=== PATIENT | female | born 1990 | race Caucasian/White ===

== ENCOUNTER → 2017-10-08 | Outpatient (CLI) | payer BC, MEDICAID ==
[~2017-10-08] MED LIST: DIPH0.5D12 IM; PREN-127 PO; RHO(150015 IM
[2017-10-08 15:13] LABS: PLATELET COUNT, AUTOMATED 174 K/uL (150-450)
== END ==
LOC: LAB 14:11
PROVIDERS: ATTEND Obstetrics & Gynecology
DX: Z34.90 Encounter for supervision of normal pregnancy, unspecified, unspecified trimester (principal); R10.11 Right upper quadrant pain
CPT/HCPCS: 36415; 82040; 82247; 82310; 82374; 82435; 82565; 82947; 82950; 84075; 84132; 84155; 84295; 84450; 84460; 84520; 85025

== ENCOUNTER → 2017-12-03 | Outpatient (CLI) | payer BC, MEDICAID | LOC: LAB 15:37 | PROVIDERS: ATTEND Obstetrics & Gynecology | DX: Z34.90 Encounter for supervision of normal pregnancy, unspecified, unspecified trimester (principal) | CPT/HCPCS: 87081 ==

== ENCOUNTER 2017-12-27 15:57 | Inpatient (IN) | payer MEDICAID ==
[~2017-12-27] VITALS: Ht 170.2 cm; Wt 71.2 kg
[2017-12-31 08:17] VITALS: BP 129/68; Ht 170.2 cm; Wt 71.2 kg
--- NOTE | 2017-12-31 10:00 | History & Physical ---
History of Present Illness EDC per U/S: Dec 29, 2017 Estimated Gestational Age: 40.2 Chief Complaint Labor History of Present Illness 27yo at 40w2d presents in spontaneous labor. She reports contractions started at 1600hrs yesterday. She denies any vaginal bleeding. She reports movement. No preeclampsia symptoms. record reviewed. care by IM[facility]. complicated by Rh negative and vaginal cyst. History Patient's Blood Type: A Negative Rubella Status: Immune Group B Strep Screen: Negative Obstetrical History: Primip Past Medical History: PMH: None PSH: Tonsillectomy Allergies: Coded Allergies: Penicillins (Unverified Allergy, Mild, HIVES, 09/17/17) latex (Unverified Allergy, Mild, HIVES, 09/17/17) Social History: No T/E/D. . Family History: Patient reports no known family medical history. Med Rec Home Meds Reported Medications Vits W-Ca,Fe,Fa(<1MG) ( VITAMINS) 1 Each Tablet, 1 EACH PO DAILY, TAB 09/17/17 Review of Systems Constitutional: No Fever Neurological: No Syncope Eyes: No Vision Change Cardiovascular: No Chest Pain Respiratory: No Shortness of Breath, No Cough Gastrointestinal: No Nausea, No Vomiting, No Diarrhea Genitourinary: No Dysuria Musculoskeletal: No Pain Psychiatric: No Depression, No Anxiety Exam General Exam Vital Signs Vital Signs Date Time Temp Pulse Resp B/P (MAP) Pulse Ox O2 Delivery O2 Flow Rate FiO2 12/31/17 08:17 98.0 74 16 129/68 (88) 96 Room Air General Apperance: Alert/Awake/No Acute Distress Neuro: No Gross deficits Eyes: Normal Extraocular Movement & Vison Cardiovascular: Regular Rate and Rhythm Respiratory: No Respiratory Distress, Clear to Auscultation Abdomen: Gravid - Non-Tender : Normal Musculoskeletal: No Weakness/Pain Extremities: No Cyanosis,Clubbing or Edema Integumentary: Skin Intact without Lesions or Rash Psychological: Alert & Oriented X3, Appropriate Mood & Affect Cervical Dialation: 4 Cervical Effacement (%): 80 Cervical Consistency: Soft Cervical Position: Mid Station: -1 Presentation: Vertex Uterine Contractions(Q min): 4 Uterine Contraction Strength: Moderate UC Resting Tone: Soft Fetus Feeling Movement?: Yes FHT Category: I Assessment and Plan Problems: (1) Spontaneous onset of labor Assessment & Plan: 27yo at 40w2d presents in spontaneous labor. GBS negative. Anticipate . (2) Rh negative status during Assessment & Plan: Rhophylac eval . (3) 40 weeks gestation of Problem Qualifiers (1) Rh negative status during : Trimester: third trimester Qualified Codes: O09.893 - Supervision of other high risk pregnancies, third trimester; Z67.91 - Unspecified blood type, rh negative LINDA WEBB MD Dec 31, 2017 10:00
[2017-12-31] MEDS ORDERED: FAMOTIDINE(*) 20MG/50ML PREMIX 50 ML IVPB PRN (10:02)
[2017-12-31] MEDS ORDERED: OXYTOCIN 30 UNIT/D5LR 500 ML 500 ML IV PRN (10:02)
[2017-12-31] MEDS ORDERED: FENTANYL/ROPIVACAINE 100 ML BAG EPI PRN (10:05)
[2017-12-31] MEDS ORDERED: LIDOCAINE/PF 2% 200MG/10ML AMP 200 MG/10 ML AMPUL EPI PRN (10:05)
[2017-12-31] MEDS ORDERED: METOCLOPRAMIDE 10 MG/2 ML SDV IVP PRN (10:05)
[2017-12-31] MEDS ORDERED: BUPIVACAINE 0.25% MPF INJ EPI PRN (10:05)
[2017-12-31] MEDS ORDERED: LIDOCAINE 1% LOCAL 300 MG/30ML INJ PRN (10:05)
[2017-12-31] MEDS ORDERED: BUPIVACAINE 0.5% INJ 30ML VIAL EPI PRN (10:05)
[2017-12-31] MEDS ORDERED: LIDO/EPI 2% MPF 1:200,000 20ML EPI PRN (10:05)
[2017-12-31] MEDS ORDERED: fentaNYL CITR 100 MCG/2 ML AMP IT PRN (10:05)
[2017-12-31] MEDS ORDERED: fentaNYL CITR 100 MCG/2 ML AMP IVP PRN (10:05)
[2017-12-31] MEDS ORDERED: LIDOCAINE/SOD BICARB 8.4% SYR SC PRN (10:05)
[2017-12-31] MEDS ORDERED: FLUSH 10 ML SYR IVP PRN (10:05)
[2017-12-31] MEDS ORDERED: EPIDURAL KEYS XX PRN (10:06)
[2017-12-31 10:25] LABS: PLATELET COUNT, AUTOMATED 135 K/uL (150-450)
--- NOTE | 2017-12-31 12:22 | Labor Progress Note ---
Labor Subjective Progress Notes Subjective Pt feeling well, contractions are still painful. Labor Objective Vital Signs Vital Signs Date Time Temp Pulse Resp B/P (MAP) Pulse Ox O2 Delivery O2 Flow Rate FiO2 12/31/17 08:17 98.0 74 16 129/68 (88) 96 Room Air Vaginal Discharge/Fluid?: Clear Fluid Cervical Dialation: 4 Cervical Effacement (%): 80 Cervical Consistency: Soft Cervical Position: Mid Station: 0 Presentation: Vertex Uterine Contractions(Q min): 4 Uterine Contraction Strength: Moderate UC Resting Tone: Soft Fetus FHT Category: I General Exam General Appearance: Alert/Awake/No Acute Distress Abdomen: Gravid - Non-Tender : Normal Extremities: No Cyanosis,Clubbing or Edema Integumentary: Skin Intact without Lesions or Rash Psychological: Alert & Oriented X3, Appropriate Mood & Affect Other Result Diagram: 12/31/17 1017 Assessment and Plan Problems: (1) Spontaneous onset of labor Assessment & Plan: AROM for augmentation. Clear fluid. Monitor for cervical change. (2) Rh negative status during Assessment & Plan: Rhophylac eval . (3) 40 weeks gestation of Problem Qualifiers (1) Rh negative status during : Trimester: third trimester Qualified Codes: O09.893 - Supervision of other high risk pregnancies, third trimester; Z67.91 - Unspecified blood type, rh negative LINDA WEBB MD Dec 31, 2017 12:22
[2017-12-31] MEDS: LR(*) 1000 ML BAG 1,000 ML IV SCH ×2 (15:03→19:42)
--- NOTE | 2017-12-31 17:42 | Anesthesia OB Pre-Anes Eval ---
History of Present Illness Anesthesia Start Date: Dec 31, 2017 Anesthesia Start Time: 16:37 EDC: Dec 29, 2017 : 1 Para: 0 Vital Signs: Vital Signs Date Time Temp Pulse Resp B/P (MAP) Pulse Ox O2 Delivery O2 Flow Rate FiO2 12/31/17 08:17 98.0 74 16 129/68 (88) 96 Room Air Pain Ratin Result Diagram: 12/31/17 1017 Height (Inches): 67.00 Weight (Pounds): 157 BMI Calculated: 24.59 Past Medical History Medical History: no pertinent history Surgical History: noncontributory Hx Anesthesia Reactions: No Hx Family Anesthesia Reaction: No Home Meds Reported Medications Vits W-Ca,Fe,Fa(<1MG) ( VITAMINS) 1 Each Tablet, 1 EACH PO DAILY, TAB 09/17/17 Allergies: Coded Allergies: Penicillins (Unverified Allergy, Mild, HIVES, 09/17/17) latex (Unverified Allergy, Mild, HIVES, 09/17/17) Anesthesia OB ROS Neurological: No migraines/headaches, No seizures, No neuropathy, No other ENT: Denies Tooth caps, Denies Loose teeth, Denies Chipped teeth, Denies Dentures, Denies Bridges, Denies Retainers, Denies Veneers, Denies Implants, Denies Tongue ring, Denies Other Pulmonary: No asthma, No smoker (pks/day/yrs), No other Airway Class: ll Cardiovascular ROS: No edema, No arrhythmia, No other ROS: No Herpes, No STD(s), No Liver Disease, No Renal Disease, No Other Endocrine ROS: No diabetes, No gestational diabetes, No thyroid disorder, No other Musculoskeletal ROS: No low back pain, No low back injury, No scoliosis, No other ASA Classification: 2 Assessment and Plan Anesthesia Plan: MEDARDO CHRISTIANSON CRNA Dec 31, 2017 17:42
--- NOTE | 2017-12-31 17:44 | Procedure Note ---
Anesthetic Placement Note Anesthesia Plan: LEB Permit for Anesthesia Signed: Yes Anesthesia Technique: Patient Sitting Anesthesia Prep: Chlorhexidine Interspace: L 4-5 Local Anesthetic: 1% Lidocaine, 25 Gauge Needle Amount Local - cc's: 2 Anesthesia Needle: 17g Touhy/Schliff Anesthesia Attempts: 1 Loss of Resistance: Normal Saline Depth of CELESTINO (cm): 4 Epidural Needle Placement: No CSF, No Blood, No Parasthesia Catheter Insertion (cm): 5 Catheter Type: Jones - Spring Wound Epidural Dressing: Tegaderm, Tape Anesthesia Tray: Lot Number ([id number]), Expiration Date (01/05/2019), Reference Number ([id number]) Anesthesia Medications: Epidural Test Dose: 1.5 Lido/Epi (1:200,000), Dose - mL (5 mL incrementally), Time (164), Negative Epidural Loading Dose: 0.2% Ropivicaine, With Fentanyl 2mcg/ml, Dose - ml (5), Time (1659) Epidural Infusion: 0.2% Ropivicaine, With Fentanyl 2mcg/ml, Start Time: (1659) Epidural Pump Setting: Bolus Dose - mL (5), Lockout - Minutes (15), Maintenance Rate - mL/hr (9), Maximum per Hour - mL (24) Complications: None MEDARDO PIERRE CRNA Dec 31, 2017 17:44
--- NOTE | 2017-12-31 18:01 | Labor Progress Note ---
Labor Subjective Progress Notes Subjective Now comfortable with epidural. No preeclampsia symptoms. Labor Objective Vital Signs Vital Signs Date Time Temp Pulse Resp B/P (MAP) Pulse Ox O2 Delivery O2 Flow Rate FiO2 12/31/17 08:17 98.0 74 16 129/68 (88) 96 Room Air Vaginal Discharge/Fluid?: Clear Fluid Cervical Dialation: 7 Cervical Effacement (%): 100 Cervical Consistency: Soft Cervical Position: Mid Station: +1 Presentation: Vertex Uterine Contractions(Q min): 3 Uterine Contraction Strength: Strong UC Resting Tone: Soft Fetus FHT Category: I General Exam General Appearance: Alert/Awake/No Acute Distress Respiratory: No Respiratory Distress Psychological: Alert & Oriented X3, Appropriate Mood & Affect Other Result Diagram: 12/31/17 1017 Assessment and Plan Problems: (1) Spontaneous onset of labor Assessment & Plan: Pt is now 7cm and comfortable with epidural. Continue with pitocin. Anticipate . (2) Rh negative status during Assessment & Plan: Rhophylac eval . (3) 40 weeks gestation of Problem Qualifiers (1) Rh negative status during : Trimester: third trimester Qualified Codes: O09.893 - Supervision of other high risk pregnancies, third trimester; Z67.91 - Unspecified blood type, rh negative LINDA WEBB MD Dec 31, 2017 18:01
--- NOTE | 2017-12-31 19:59 | Anesthesia Progress Note ---
Progress/Maintenance Anesthesia Note Date: Dec 31, 2017 Anesthesia Note Time: 18:00 Pain Intensity: 2 Pump: On Pump Rate (ML/HR): 9 Motor Level: Bending Knees-Bilateral Dilatation: 9 Position: Left, Tilt MEDARDO PIERRE CRNA Dec 31, 2017 19:59
--- NOTE | 2017-12-31 20:53 | OB Delivery Note ---
Delivery Note Vaginal Delivery Type: Spont. Vaginal Delivery Delivery Date: Dec 31, 2017 Delivery Time: 20:28 Length of Labor Stage II (hrs): 1.5 Labor Stage III (minutes): 4 Delivery Anesthesia: Epidural Infant Sex: Male Repair Needed: 2nd Degree Estimated Blood Loss: 400 LINDA WEBB MD Dec 31, 2017 20:53
[2017-12-31] MEDS ORDERED: APAP/HYDROCODONE 325/5 TAB PO PRN (20:55)
[2017-12-31] MEDS ORDERED: ACETAMINOPHEN 325 MG TAB PO PRN (20:55)
[2017-12-31] MEDS ORDERED: HYDROCORTISONE 2.5% CR 30GM TB PR PRN (20:55)
[2017-12-31] MEDS ORDERED: MAGNESIUM HYDROXIDE* 30ML UDCP PO PRN (20:55)
[2017-12-31] MEDS ORDERED: LANOLIN OINT 7 GM TUBE TP PRN (20:55)
[2017-12-31] MEDS ORDERED: BENZOCAINE 20% 60 ML BTL TP PRN (20:55)
[2017-12-31] MEDS ORDERED: GLYCERIN/WITCH HAZEL LEAF 1 PK TOP PRN (20:55)
[2017-12-31] MEDS ORDERED: LOR5/325 PO (20:56)
[2017-12-31] MEDS ORDERED: IBUP800T37 PO (20:56)
[2017-12-31 22:35] VITALS: BP 100/57
[2017-12-31 23:17] VITALS: BP 89/60
[2017-12-31] MEDS: IBUPROFEN 800 MG TAB PO SCH (23:20)
[2017-12-31] MEDS: DOCUSATE CALCIUM 240 MG CAP PO SCH (23:21)
[2018-01-01 03:10] VITALS: BP 110/70
[2018-01-01] MEDS: IBUPROFEN 800 MG TAB PO SCH ×3 (05:04→21:55)
[2018-01-01 07:00] VITALS: BP 103/71
--- NOTE | 2018-01-01 08:52 | OB/GYN Progress Note ---
OB Subjective Progress Notes Subjective Doing well. Pain controlled with oral medications. Tolerating regular diet. Ambulating. Voiding. Normal lochia. No preeclampsia symptoms. OB Objective Physical Exam Vital Signs Date Time Temp Pulse Resp B/P (MAP) Pulse Ox O2 Delivery O2 Flow Rate FiO2 01/01/18 03:10 98.4 78 17 110/70 (83) Room Air 12/31/17 08:17 96 Intake and Output 01/01/18 07:00 Intake Total 1100 ml Output Total 1050 ml Balance 50 ml Intake IV Total 1100 ml Output Urine Total 1050 ml # Voids 1 General Appearance: Alert/Awake/No Acute Distress Neurological: No Gross deficits Eyes: Normal Extraocular Movement & Vison Cardiovascular: Normal Rhythm & Peripheral Pulses, Regular Rate and Rhythm Respiratory: No Respiratory Distress, Clear to Auscultation Abdomen: Soft, Non-Tender, Non-Distended, Fundus Firm Extremities: No Cyanosis,Clubbing or Edema Integumentary: Skin Intact without Lesions or Rash Psychological: Alert & Oriented X3, Appropriate Mood & Affect Result Diagram: 12/31/17 1017 Assessment and Plan Problems: (1) examination following vaginal delivery Assessment & Plan: PPD#1 s/p . Routine orders. Rhophylac eval pending, then remove IV. Anticipate home tomorrow. (2) Rh negative status during Assessment & Plan: Rhophylac eval . Problem Qualifiers (1) Rh negative status during : Trimester: third trimester Qualified Codes: O09.893 - Supervision of other high risk pregnancies, third trimester; Z67.91 - Unspecified blood type, rh negative LINDA WEBB MD Jan 01, 2018 08:52
--- NOTE | 2018-01-01 09:36 | Anesthesia Post Eval Note ---
Anesthesia Post Eval Note Vital Signs Date Time Temp Pulse Resp B/P (MAP) Pulse Ox O2 Delivery O2 Flow Rate FiO2 01/01/18 03:10 98.4 78 17 110/70 (83) Room Air 12/31/17 08:17 96 Pt able to participate in Eval: Yes Cardiovascular Status: Satisfactory Respiratory Status: Satisfactory Pain Managment: Satisfactory PO Nausea/Vomiting: Satisfactory Temperature Management: Satisfactory Mental Status: Satisfactory, Alert, Oriented X3 Post-Op Hydration Status: Satisfactory, Tolerating PO Well, Voiding w/o Difficulty Anesthesia Type: SAB Anesthesia Tolerance: no anesthesia concerns MEDARDO PIERRE CRNA Jan 01, 2018 09:36
--- NOTE | 2018-01-01 09:54 | DELIVERY NOTE ---
DELIVERY DATE: December 31, 2017 SURGEON: Stephanie Leblanc MD ANESTHESIA: Epidural by Ike Palm CRNA PREOPERATIVE DIAGNOSIS: Intrauterine at 40 weeks and 2 days presenting in spontaneous active labor. POSTOPERATIVE DIAGNOSIS: 1. Intrauterine at 40 weeks and 2 days presenting in spontaneous active labor. 2. Delivery of viable male at 2038 hours weighing 7 pounds, 1 ounce. PROCEDURE 1. Spontaneous vaginal delivery. 2. Repair of second degree midline laceration. ESTIMATED BLOOD LOSS 400 cc. INDICATIONS This patient is a 27-year-old 1, para 0 who presented at 40 weeks and 2 days in spontaneous active labor. At the time of presentation, she was noted to be 4 cm dilated, 80% effaced and -1 station. She progressed to 5 cm on her own but then stalled out and was started on Pitocin for augmentation. She subsequently became complete at 1901 hours and was able to labor down, brining the 's vertex to the perineum without pushing. PROCEDURE The patient was properly identified and placed in the dorsolithotomy position. While she was being prepped and draped, the 's vertex was already . She was asked to push and was able to deliver the infant's vertex spontaneously in the ETHIOPIAN position over an intact perineum. A nuchal cord was checked but not noted. However, at this time, there was a large gush of bright red blood that came from the vaginal canal. The anterior shoulder delivered easily followed by the posterior shoulder. The remainder of the infant was then easily delivered. The infant was dried and stimulated. Oropharynx and nasopharynx were bulb suctioned. The infant was passed to the mother's abdomen in good condition. After approximately two minutes, the cord was clamped x2 and cut by the father of the baby. Cord blood was obtained and passed off the table. Pitocin was started through the IV fluid to help firm the uterus. The placenta subsequently delivered spontaneously intact and was passed off the table. At this time, the cervix was noted to be prolapsing down to the level of the vaginal introitus. The anterior lip did have a small laceration and was repaired using a 2-0 Vicryl and hemostasis was assured. Using a lap sponge, the cervix was retracted upwards. Examination of the vaginal vault and perineum revealed a second degree midline laceration, which was repaired using a 2-0 Vicryl in normal fashion. Hemostasis was assured at this time. Estimated blood loss was 400 cc. All sponge and needle counts were correct at the end of the procedure. [facility]
[2018-01-01] MEDS: DOCUSATE CALCIUM 240 MG CAP PO SCH ×2 (09:55→20:33)
[2018-01-01 13:00] VITALS: BP 103/71
[2018-01-01 19:24] VITALS: BP 100/62
[2018-01-02 00:04] VITALS: BP 93/51
[2018-01-02 03:40] VITALS: BP 91/49
[2018-01-02] MEDS: IBUPROFEN 800 MG TAB PO SCH ×2 (06:40→13:15)
[2018-01-02] MEDS ORDERED: INFLUENZA VIRUS VAC 0.5ML SYR IM ONLY ONE (09:00)
[2018-01-02] MEDS ORDERED: MEASLES,MUMP,RUBELLA VAC 0.5ML SUBQ ONE (09:00)
[2018-01-02] MEDS ORDERED: DIPHTH/TETANUS/ACEL. PERTUSSIS IM ONLY ONE (09:00)
--- NOTE | 2018-01-02 12:12 | OB/GYN Progress Note ---
OB Subjective Progress Notes Subjective Doing good this morning. Tolerating regular diet. Ambulatory. Voiding with out any difficulty. Pain controlled with po pain medication. Bleeding appropriate. . GI: NEG Nausea, NEG Vomiting, NEG Flatus, NEG Bowel Movement : Voiding Well, Vaginal Bleeding, Moderate Pain: Mild, Tolerating PO Pain Meds Neurological: No Headache, No Other Eyes: No Visual Disturbances OB Objective Physical Exam Vital Signs Date Time Temp Pulse Resp B/P (MAP) Pulse Ox O2 Delivery O2 Flow Rate FiO2 01/02/18 03:40 97.6 82 16 91/49 (63) 95 Room Air Intake and Output 01/02/18 07:00 Intake Total 240 ml Balance 240 ml Intake Oral 240 ml # Voids 1 General Appearance: Alert/Awake/No Acute Distress Neurological: No Gross deficits Eyes: Normal Extraocular Movement & Vison Cardiovascular: Normal Rhythm & Peripheral Pulses, Regular Rate and Rhythm Respiratory: No Respiratory Distress, Clear to Auscultation Abdomen: Soft, Non-Tender, Non-Distended, Fundus Firm Extremities: No Cyanosis,Clubbing or Edema Integumentary: Skin Intact without Lesions or Rash Psychological: Alert & Oriented X3, Appropriate Mood & Affect Result Diagram: 12/31/17 1017 Assessment and Plan [employer] OPERATOR Plan: Discharge Home Today Problems: (1) examination following vaginal delivery Assessment & Plan: Plan for discharge today. Follow up in 2-[address] Leblanc. (2) Rh negative status during Problem Qualifiers (1) Rh negative status during : Trimester: third trimester Qualified Codes: O09.893 - Supervision of other high risk pregnancies, third trimester; Z67.91 - Unspecified blood type, rh negative BLESSING STOKES DO Jan 02, 2018 12:12
--- NOTE | 2018-01-02 12:20 | OB/GYN Discharge Summary ---
Discharge Summary Reason for Hosp/Final Diag: (1) examination following vaginal delivery Hospital Course & Plan: Pt presented to L&D with a complaint of My water broke. Progressed to complete and delivered. See delivery note for details. Pt remained on LDRP and met pp goals. Discharged PPD 2. (2) Rh negative status during [place] Vital Signs Vital Signs Date Time Temp Pulse Resp B/P (MAP) Pulse Ox O2 Delivery O2 Flow Rate FiO2 01/02/18 03:40 97.6 82 16 91/49 (63) 95 Room Air Weight (Pounds): 157 Result Diagram: 12/31/17 1017 Condition: Improved Discharge: Home Home Meds Active Scripts Hydrocodone Bit/Acetaminophen (HYDROCODON-ACETAMINOPHEN 5-325) 1 Each Tablet, 1 EACH PO Q4-6H PRN for pain, #20 TAB 0 Refills Prov:LINDA LEBLANC MD 12/31/17 Ibuprofen (IBUPROFEN) 800 Mg Tablet, 1 TAB PO Q8H PRN for pain, #40 TAB 0 Refills TAKE WITH FOOD EVERY 8 HOURS Prov:LINDA LEBLANC MD 12/31/17 Reported Medications Vits W-Ca,Fe,Fa(<1MG) ( VITAMINS) 1 Each Tablet, 1 EACH PO DAILY, TAB 09/17/17 Follow up with: [facility] [phone], Dr. Leblanc [phone] Follow up in: 2 wks PO Discharge Diet: As Tolerates, Increase Fluid Intake Discharge Activity: As Tolerates, Pelvic Rest Problem Qualifiers (1) Rh negative status during : Trimester: third trimester Qualified Codes: O09.893 - Supervision of other high risk pregnancies, third trimester; Z67.91 - Unspecified blood type, rh negative ALISHA STOKESRachna SIERRA Jan 02, 2018 12:20
[2018-01-02] MEDS: DOCUSATE CALCIUM 240 MG CAP PO SCH (13:00)
== END 2018-01-02 13:00 | disposition home or self-care (01) | DRG 775 ==
LOC: OB 12-31 07:41
PROVIDERS: ADMIT Obstetrics & Gynecology; ATTEND Obstetrics & Gynecology
PROC: 10E0XZZ Delivery of Products of Conception, External Approach (ICD-10-PCS; principal; 2017-12-31)
PROC: 0KQM0ZZ Repair Perineum Muscle, Open Approach (ICD-10-PCS; 2017-12-31)
PROC: 10907ZC Drainage of Amniotic Fluid, Therapeutic from Products of Conception, Via Natural or Artificial Opening (ICD-10-PCS; 2017-12-31)
PROC: 3E0334Z Introduction of Serum, Toxoid and Vaccine into Peripheral Vein, Percutaneous Approach (ICD-10-PCS; 2018-01-01)
DX: O36.0130 Maternal care for anti-D [Rh] antibodies, third trimester, not applicable or unspecified (principal); O70.1 Second degree perineal laceration during delivery; Z3A.40 40 weeks gestation of pregnancy; Z37.0 Single live birth; Z88.0 Allergy status to penicillin; Z91.040 Latex allergy status
CPT/HCPCS: 36415; 85025; 85461; 86850; 86870; 86900; 86901; J2590; J2791; J3010; J7120; S0020